=== PATIENT | female | born 1965 | race American Indian/Alaskan Native ===

== ENCOUNTER 2019-04-11 09:59 | Outpatient (CLI) | payer OTHER ==
--- NOTE | 2019-04-11 11:58 | Mammography Report ---
BILATERAL DIGITAL SCREENING MAMMOGRAM WITH CAD INDICATION: Routine screening mammography. TECHNIQUE: Digital bilateral 2D mammography was obtained in the craniocaudal and mediolateral obliq ue projections. This examination was interpreted with the benefit of Computer-Aided Detection analysi s. COMPARISON: 09/08/2013, 07/14/2012. FINDINGS: Breast Density: There are scattered areas of fibroglandular density. No suspicious mass, microcalcifications, or architectural distortion. IMPRESSION: No evidence of breast malignancy. Recommend routine screening mammogram in one year. BI-RADS Category 1: Negative. No mammographic evidence of malignancy. Recommend routine screening m ammography in one year. A "normal" or negative report should not discourage follow up or biopsy of a clinically significant f inding. A written summary of these findings will be mailed to the patient. The patient will be entered into a mammography reporting system which will generate a reminder letter for the patient's next appointmen t at the appropriate interval. [employer] recommends yearly mammograms starting at age 40 and continuing as l amber as a woman is in good health. Breast MRI is recommended for women with an approximate 20-25% or greater lifetime risk of breast cancer, including women with a strong family history of breast or ova natalee cancer or who have been treated for Hodgkin's disease. Signer Name: Isai Trivedi MD Signed: 04/11/2019 11:53 AM Workstation Name: [id number]
== END 2019-04-11 10:00 | disposition home or self-care (01) ==
LOC: MAMMO 09:59
PROVIDERS: ATTEND Internal Medicine
DX: Z12.31 Encounter for screening mammogram for malignant neoplasm of breast (principal); N64.89 Other specified disorders of breast
CPT/HCPCS: 77067

== ENCOUNTER 2021-02-22 08:54 | Outpatient (CLI) | payer OTHER | END 2021-02-22 08:55 | disposition home or self-care (01) | LOC: MAMMO 08:54 | PROVIDERS: ATTEND Internal Medicine | DX: Z12.31 Encounter for screening mammogram for malignant neoplasm of breast (principal) | CPT/HCPCS: 77067 ==